=== PATIENT | male | born 1965 | race Caucasian/White ===

== ENCOUNTER 2016-06-19 07:45 | Day surgery (SDC) | payer BC ==
[2016-06-14 08:46] VITALS: BMI 34.5
[~2016-06-19 07:45] MED LIST: LACTATED RINGERS 1,000 ML IV SCH; LIDOCAINE 1% 20 ML VIAL (10MG/ML) FOR IV START INTRADERMA PRN
[2016-06-19 08:08] VITALS: TEMP 97.6
[2016-06-19] MEDS ORDERED: PROPOFOL 10 MG/ML 20 ML VIAL IV ONE (08:15)
--- NOTE | 2016-06-19 08:30 | P.PCN ---
Date of Procedure: 06/19/16 Postoperative Diagnosis: BRIEF HISTORY: Patient is a 51-year-old pleasant white male, scheduled for an elective colonoscopy as a part of change in bowel habits. PROCEDURE PERFORMED: Colonoscopy with biopsy PREOPERATIVE DIAGNOSIS: Change in bowel habits. IV sedation per Anesthesia. PROCEDURE: After informed consent was obtained, the patient, was brought into the endoscopy unit. IV conscious sedation was administered by Anesthesia under continuous monitoring. Digital rectal examination was normal. Initially the Olympus CF-160 flexible video colonoscope was then inserted in the rectum, gradually advanced into the cecum without any difficulty. Careful examination was performed as the scope was gradually being withdrawn. Ileocecal valve and the appendiceal orifice were visualized and appeared normal. Prep was excellent. Mucosa of the cecum, ascending colon, transverse colon, descending colon, sigmoid colon, and rectum appeared normal. In the distal sigmoid colon there was a 5 mm polyp that was removed by biopsy. Scattered sigmoidal diverticulosis seen. Retroflexion was performed in the rectum and no lesions were seen. The patient tolerated the procedure well. IMPRESSION: 5 mm sigmoid colon polyp status post removal by biopsy Scattered sigmoid diverticulosis. RECOMMENDATIONS: Findings of this examination were discussed with the patient as well as his family. He was advised to follow with the biopsy results. If the biopsy shows a tubular adenoma he can have a repeat surveillance colonoscopy in 5 years.
[2016-06-19 08:32] LABS: Glucose,Whole Blood 134 mg/dL (75-99)
[2016-06-19] MEDS ORDERED: hydrALAZINE HCL 20 MG/ML 1 ML VIAL IVP STA (08:50)
[2016-06-19 08:57] VITALS: RESP 18
[2016-06-19] MEDS ORDERED: hydrALAZINE HCL 20 MG/ML 1 ML VIAL IVP ONE (09:22)
[2016-06-19] MEDS ORDERED: METOPROLOL TARTRATE 5 MG/5 ML VIAL IVP ONE (09:26)
[2016-06-19 10:25] VITALS: BP 167/85; PULSE 75
== END 2016-06-19 10:12 | disposition home or self-care (01) ==
LOC: ORWHC2ENDO 07:45
PROVIDERS: ATTEND Internal Medicine Gastroenterology
DX: K57.30 Diverticulosis of large intestine without perforation or abscess without bleeding (principal); D12.5 Benign neoplasm of sigmoid colon; I10 Essential (primary) hypertension; E78.5 Hyperlipidemia, unspecified; E11.9 Type 2 diabetes mellitus without complications; Z79.899 Other long term (current) drug therapy
CPT/HCPCS: 88305; 45380; J0360; J2704

== ENCOUNTER 2016-10-03 17:34 | Inpatient (IN) | payer BC ==
[2016-10-03] MEDS ORDERED: DILTIAZEM 125 MG in SODIUM CHLORIDE 0.9% 100 ML IV ONE (17:38)
--- NOTE | 2016-10-03 17:48 | ED ---
General Adult HPI - General Chief complaint: Arrhythmia/Palpitations Stated complaint: AFIB, SENT BY DR DIAL Time Seen by Provider: 10/03/16 17:38 Source: patient, family, RN notes reviewed Mode of arrival: ambulatory Limitations: no limitations - History of Present Illness Initial comments: Patient is a pleasant 51-year-old male presenting to the emergency Department with reported atrial fibrillation. Patient has been experiencing palpitations weekly for 7 months. Patient x-ray the swelling his doctor's office. Patient was there for follow-up for high blood pressure. EKG showed A. fib with RVR. Patient did convert while in the office. Patient is currently symptom-free. Patient admits to having palpitations at that time. No chest pain. No dyspnea. No history of previously documented arrhythmia. - Related Data Home Medications Medication Instructions Recorded Confirmed Simvastatin [Zocor] 20 mg PO HS 06/14/16 10/03/16 glyBURIDE/METFORMIN HCL 2 tab PO BID 06/14/16 10/03/16 [glyBURIDE/METFORMIN HCL 2.5-500 mg] Lisinopril [Zestril] 20 mg PO DAILY 10/03/16 10/03/16 cloNIDine HCL [Catapres] 0.1 mg PO Q6H PRN 10/03/16 10/03/16 Allergies Allergy/AdvReac Type Severity Reaction Status Date / Time No Known Allergies Allergy Verified 10/03/16 18:43 Review of Systems ROS Statement: Those systems with pertinent positive or pertinent negative responses have been documented in the HPI. ROS Other: All systems not noted in ROS Statement are negative. Constitutional: Denies: fever Eyes: Denies: eye pain ENT: Denies: ear pain Respiratory: Denies: cough, dyspnea Cardiovascular: Reports: palpitations. Denies: chest pain Endocrine: Denies: fatigue Gastrointestinal: Denies: abdominal pain Genitourinary: Denies: dysuria Musculoskeletal: Denies: back pain Skin: Denies: rash Neurological: Denies: weakness Past Medical History Past Medical History: Diabetes Mellitus, GERD/Reflux, Hyperlipidemia, Hypertension History of Any Multi-Drug Resistant Organisms: None Reported Past Surgical History: Orthopedic Surgery, Tonsillectomy Additional Past Surgical History / Comment(s): thumb on left hand-repair of torn tendon Past Anesthesia/Blood Transfusion Reactions: No Reported Reaction Past Psychological History: No Psychological Hx Reported Smoking Status: Former smoker Past Alcohol Use History: None Reported Additional Past Alcohol Use History / Comment(s): quit smoking 2016, smoked for 10 yrs- < 1 PPD Past Drug Use History: None Reported - Past Family History Brother(s) Family Medical History: Cancer General Exam Limitations: no limitations General appearance: alert, in no apparent distress Head exam: Present: atraumatic Eye exam: Present: normal appearance, PERRL ENT exam: Present: normal oropharynx Neck exam: Present: normal inspection Respiratory exam: Present: normal lung sounds bilaterally Cardiovascular Exam: Present: regular rate, normal rhythm Expanded Peripheral pulses: 2+: Radial (R), Radial (L), Posterior Tibialis (R), Posterior Tibialis (L) GI/Abdominal exam: Present: soft. Absent: tenderness Extremities exam: Present: normal inspection. Absent: pedal edema, calf tenderness Neurological exam: Present: alert Psychiatric exam: Present: normal affect, normal mood Skin exam: Absent: rash Course Vital Signs 10/03/16 10/03/16 10/03/16 17:38 17:48 17:49 Temperature 98.3 F Pulse Rate 77 Pulse Rate [ 75 [employer] ] Respiratory 18 18 Rate Blood Pressure 224/111 O2 Sat by Pulse 98 Oximetry 10/03/16 18:20 Temperature Pulse Rate 66 Pulse Rate [ [employer] ] Respiratory 16 Rate Blood Pressure 195/103 O2 Sat by Pulse 98 Oximetry - Reevaluation(s) Reevaluation #1: 10/03/16 17:47 Case was discussed with Dr. Dial prior to patient arrival. 10/03/16 18:[address] Fonseca's office did show A. fib with RVR. EKG Findings - EKG Comments: EKG Findings:: Normal sinus rhythm 75. Normal intervals. Normal axis. Q wave with inverted T waves leads 3 and aVF. Medical Decision Making - Medical Decision Making Patient reexamined and resting comfortably in bed. Rhythm remains normal sinus. Patient and family updated on results and plan. - Lab Data Result diagrams: 10/03/16 17:45 10/03/16 17:45 Lab Results 10/03/16 10/03/16 10/03/16 Range/Units 17:45 17:45 17:45 WBC 6.5 (3.8-10.6) k/uL RBC 4.74 (4.30-5.90) m/uL Hgb 14.8 (13.0-17.5) gm/dL Hct 43.2 (39.0-53.0) % MCV 91.1 (80.0-100.0) fL MCH 31.2 (25.0-35.0) pg MCHC 34.2 (31.0-37.0) g/dL RDW 13.6 (11.5-15.5) % Plt Count 231 (150-450) k/uL Neutrophils % 48 % Lymphocytes % 40 % Monocytes % 6 % Eosinophils % 4 % Basophils % 1 % Neutrophils # 3.1 (1.3-7.7) k/uL Lymphocytes # 2.6 (1.0-4.8) k/uL Monocytes # 0.4 (0-1.0) k/uL Eosinophils # 0.3 (0-0.7) k/uL Basophils # 0.1 (0-0.2) k/uL PT (9.0-12.0) sec INR (<1.1) APTT (22.0-30.0) sec Sodium 144 (137-145) mmol/L Potassium 5.0 (3.5-5.1) mmol/L Chloride 111 H (98-107) mmol/L Carbon Dioxide 23 (22-30) mmol/L Anion Gap 10 mmol/L BUN 18 (9-20) mg/dL Creatinine 0.90 (0.66-1.25) mg/dL Est GFR (MDRD) Af Amer >60 (>60 ml/min/1.73 sqM) Est GFR (MDRD) Non-Af >60 (>60 ml/min/1.73 sqM) Glucose 110 H (74-99) mg/dL Calcium 9.5 (8.4-10.2) mg/dL Magnesium 2.0 (1.6-2.3) mg/dL Total Bilirubin 0.7 (0.2-1.3) mg/dL AST 40 (17-59) U/L ALT 44 (21-72) U/L Alkaline Phosphatase 59 (38-126) U/L Total Creatine Kinase 225 H (55-170) U/L CK-MB (CK-2) 1.2 (0.0-2.4) ng/mL CK-MB (CK-2) Rel Index 0.5 Troponin I <0.012 (0.000-0.034) ng/mL Total Protein 7.4 (6.3-8.2) g/dL Albumin 4.6 (3.5-5.0) g/dL TSH 2.000 (0.465-4.680) mIU/L Free T4 0.91 (0.78-2.19) ng/dL Free T3 pg/mL 3.9 (2.8-5.3) pg/ml 10/03/16 Range/Units 17:45 WBC (3.8-10.6) k/uL RBC (4.30-5.90) m/uL Hgb (13.0-17.5) gm/dL Hct (39.0-53.0) % MCV (80.0-100.0) fL MCH (25.0-35.0) pg MCHC (31.0-37.0) g/dL RDW (11.5-15.5) % Plt Count (150-450) k/uL Neutrophils % % Lymphocytes % % Monocytes % % Eosinophils % % Basophils % % Neutrophils # (1.3-7.7) k/uL Lymphocytes # (1.0-4.8) k/uL Monocytes # (0-1.0) k/uL Eosinophils # (0-0.7) k/uL Basophils # (0-0.2) k/uL PT 10.5 (9.0-12.0) sec INR 1.0 (<1.1) APTT 22.1 (22.0-30.0) sec Sodium (137-145) mmol/L Potassium (3.5-5.1) mmol/L Chloride (98-107) mmol/L Carbon Dioxide (22-30) mmol/L Anion Gap mmol/L BUN (9-20) mg/dL Creatinine (0.66-1.25) mg/dL Est GFR (MDRD) Af Amer (>60 ml/min/1.73 sqM) Est GFR (MDRD) Non-Af (>60 ml/min/1.73 sqM) Glucose (74-99) mg/dL Calcium (8.4-10.2) mg/dL Magnesium (1.6-2.3) mg/dL Total Bilirubin (0.2-1.3) mg/dL AST (17-59) U/L ALT (21-72) U/L Alkaline Phosphatase (38-126) U/L Total Creatine Kinase (55-170) U/L CK-MB (CK-2) (0.0-2.4) ng/mL CK-MB (CK-2) Rel Index Troponin I (0.000-0.034) ng/mL Total Protein (6.3-8.2) g/dL Albumin (3.5-5.0) g/dL TSH (0.465-4.680) mIU/L Free T4 (0.78-2.19) ng/dL Free T3 pg/mL (2.8-5.3) pg/ml Disposition Clinical Impression: Atrial fibrillation Disposition: ADMITTED IP TO THIS HOSP Referrals: Jesus Dial MD [Primary Care Provider] - 1-2 days Time of Disposition: 18:47
[2016-10-03 17:55] LABS: Basophils # (A) 0.1 k/uL (0-0.2); Basophils % (A) 1 %; CH 31.7; CHCM 34.9; Eosinophils # (A) 0.3 k/uL (0-0.7); Eosinophils % (A) 4 %; HCT 43.2 % (39.0-53.0); HDW 2.68; HGB 14.8 gm/dL (13.0-17.5); Luc % (Auto) 2; Lymphocytes # (A) 2.6 k/uL (1.0-4.8); Lymphocytes % (A) 40 %; MCH 31.2 pg (25.0-35.0); MCHC 34.2 g/dL (31.0-37.0); MCV 91.1 fL (80.0-100.0); Mean Platelet Volume 7.8; Monocytes # (A) 0.4 k/uL (0-1.0); Monocytes % (A) 6 %; Neutrophils # (A) 3.1 k/uL (1.3-7.7); Neutrophils % (A) 48 %; RBC 4.74 m/uL (4.30-5.90); RDW 13.6 % (11.5-15.5); WBC 6.5 k/uL (3.8-10.6); WBC (Perox) 6.65
[2016-10-03 18:04] LABS: Prothrombin Time 10.5 sec (9.0-12.0)
[2016-10-03 18:06] LABS: ALT 44 U/L (21-72); AST 40 U/L (17-59); Alkaline Phosphatase 59 U/L (38-126); Anion Gap 10 mmol/L; Blood Urea Nitrogen 18 mg/dL (9-20); Calcium 9.5 mg/dL (8.4-10.2); Carbon Dioxide 23 mmol/L (22-30); Chloride 111 mmol/L (98-107); Glucose 110 mg/dL (74-99); Non-African American GFR(MDRD) >60 (>60 ml/min/1.73 sqM); Sodium 144 mmol/L (137-145); Total Bilirubin 0.7 mg/dL (0.2-1.3); Total Protein 7.4 g/dL (6.3-8.2)
[2016-10-03 18:11] LABS: Partial Thromboplastin Time 22.1 sec (22.0-30.0)
--- NOTE | 2016-10-03 18:16 | XR ---
EXAMINATION TYPE: XR chest 1V portable DATE OF EXAM: 10/03/2016 6:09 PM COMPARISON: NONE HISTORY: Dysrhythmia TECHNIQUE: Single frontal view of the chest is obtained. FINDINGS: There is no heart failure nor confluent pneumonic infiltrate. Costophrenic angles are seble r. There are chest leads. There are no hilar masses. Bony thorax is intact. IMPRESSION: No active cardiopulmonary disease. Normal heart.
[2016-10-03 18:18] LABS: Creatine Kinase 225 U/L (55-170)
[2016-10-03] MEDS ORDERED: hydrALAZINE HCL 25 MG TAB PO STA (18:22)
[2016-10-03] MEDS ORDERED: cloNIDine HCL 0.1 MG TAB PO STA (18:24)
[2016-10-03 18:30] LABS: Creatine Kinase MB 1.2 ng/mL (0.0-2.4); Troponin I <0.012 ng/mL (0.000-0.034)
[2016-10-03] MEDS ORDERED: HEPARIN SODIUM,PORCINE 5,000 UNIT/ML 1 ML VIAL IV ONE (18:47)
[2016-10-03] MEDS ORDERED: HEPARIN SODIUM,PORCINE 5,000 UNIT/ML 1 ML VIAL IV PRN (18:47)
[2016-10-03] MEDS ORDERED: ASPIRIN 81 MG CHEW PO STA (18:47)
[2016-10-03] MEDS ORDERED: hydrALAZINE HCL 20 MG/ML 1 ML VIAL IVP PRN (18:50)
[2016-10-03] MEDS ORDERED: HEPARIN SODIUM,PORCINE/D5W PMX 25,000 UNIT in DEXTROSE/WATER 1 500ML.BAG IV SCH (19:00)
[2016-10-03 19:18] LABS: Glucose,Whole Blood 83 mg/dL (75-99)
[2016-10-03 20:28] VITALS: BMI 34.3
[2016-10-03 20:39] LABS: Glucose,Whole Blood 73 mg/dL (75-99)
[2016-10-03] MEDS ORDERED: ATORVASTATIN 10 MG TAB PO SCH (21:15)
[2016-10-03] MEDS: metFORMIN 500 MG TAB PO SCH (22:55)
[2016-10-03] MEDS: glipiZIDE 10 MG TAB PO SCH (22:55)
[2016-10-03 23:59] LABS: Creatine Kinase 145 U/L (55-170)
[2016-10-04 00:12] LABS: Troponin I <0.012 ng/mL (0.000-0.034)
[2016-10-04 00:59] LABS: Hemoglobin A1C 6.2 % (4.2-6.1)
[2016-10-04 06:22] LABS: Mean Platelet Volume 7.4
[2016-10-04 06:38] LABS: Creatine Kinase 125 U/L (55-170)
[2016-10-04] MEDS: INSULIN LISPRO (humaLOG) 300 UNIT/3 ML VIAL SQ SCH ×2 (06:41→11:25)
[2016-10-04 06:50] LABS: Creatine Kinase MB 0.9 ng/mL (0.0-2.4); Troponin I <0.012 ng/mL (0.000-0.034)
[2016-10-04 06:52] LABS: Glucose,Whole Blood 83 mg/dL (75-99)
[2016-10-04 07:16] LABS: Cholesterol 142 mg/dL (<200); HDL Cholesterol 43 mg/dL (40-60); Triglycerides 141 mg/dL (<150)
[2016-10-04] MEDS ORDERED: ASPIRIN 325 MG TAB PO SCH (09:00)
[2016-10-04] MEDS ORDERED: LISINOPRIL 20 MG TAB PO SCH (09:00)
[2016-10-04] MEDS ORDERED: cloNIDine HCL 0.1 MG TAB PO SCH (10:30)
[2016-10-04] MEDS: glipiZIDE 10 MG TAB PO SCH (10:45)
[2016-10-04] MEDS: metFORMIN 500 MG TAB PO SCH (10:45)
[2016-10-04] MEDS ORDERED: METOPROLOL TARTRATE 25 MG TAB PO SCH (10:45)
[2016-10-04 11:14] LABS: Glucose,Whole Blood 87 mg/dL (75-99)
--- NOTE | 2016-10-04 11:20 | ECHOF ---
Referral Reason:a fib MEASUREMENTS -------- HEIGHT: 175.3 cm WEIGHT: 103.4 kg BP: 186/100 RVIDd: 3.3 cm (< 3.3) IVSd: 1.5 cm (0.6 - 1.1) LVIDd: 4.4 cm (3.9 - 5.3) LVPWd: 1.4 cm (0.6 - 1.1) IVSs: 1.8 cm LVIDs: 2.9 cm LVPWs: 1.8 cm LA Diam: 3.6 cm (2.7 - 3.8) LAESV Index (A-L): 29.38 ml/m Ao Diam: 3.2 cm (2.0 - 3.7) AV Cusp: 2.1 cm (1.5 - 2.6) LA Diam: 3.3 cm (2.7 - 3.8) MV EXCURSION: 19.176 mm (> 18.000) MV EF SLOPE: 54 mm/s (70 - 150) EPSS: 0.6 cm MV E Josue: 1.04 m/s MV DecT: 227 ms MV A Josue: 1.06 m/s MV E/A Ratio: 0.98 FINDINGS -------- Sinus rhythm. This was a technically adequate study. The left ventricular size is normal. There is moderate concentric left ventricular hypertrophy. Overall left ventricular systolic function is normal with, an EF between 55 - 60 %. The right ventricle is mildly enlarged. LA is midly dilated 29-33ml/m2. The right atrium is normal in size. The aortic valve is trileaflet and appears structurally normal. Mild mitral annular calcification present. The tricuspid valve appears structurally normal. The pulmonic valve was not well visualized. The aortic root size is normal. Normal inferior vena cava with normal inspiratory collapse consistent with estimated right atrial pressure of 5 mmHg. The pericardium is normal. CONCLUSIONS -------- 1. Sinus rhythm. 2. Mild mitral annular calcification present. 3. The tricuspid valve appears structurally normal. 4. The pulmonic valve was not well visualized. 5. The aortic root size is normal. 6. Normal inferior vena cava with normal inspiratory collapse consistent with estimated right atrial pressure of 5 mmHg. 7. The pericardium is normal. 8. This was a technically adequate study. 9. The left ventricular size is normal. 10. There is moderate concentric left ventricular hypertrophy. 11. Overall left ventricular systolic function is normal with, an EF between 55 - 60 %. 12. The right ventricle is mildly enlarged. 13. LA is midly dilated 29-33ml/m2. 14. The right atrium is normal in size. 15. The aortic valve is trileaflet and appears structurally normal. [employer]: Niurka Flores RDCS
--- NOTE | 2016-10-04 12:19 | P.HPIM ---
History of Present Illness H&P Date: 10/03/16 Chief Complaint: A. fib with RVR, shortness of breath, urgent hypertension, hyperlipidemia a 51-year-old male one of my office patient mildly overweight with history of diabetes hypertension hyperlipidemia who was seen in our office in for mild shortness of breath along with significant elevated blood pressure not controlled to current medication. At the time found to be in A. fib with RVR pulse rate running around 120 bpm. Patient was sent to the emergency department to start on heparin drip and Cardizem drip and admitted to the hospital with above problem. Patient has been symptomatic for over 2 weeks according to him with mild feeling of palpitation on and off, increased swelling in the legs, significantly high blood pressure and just not feeling well overall. Patient be started on Cardizem drip initially will be started on beta nadira and will be kept on it as an outpatient try to control his blood pressure and to keep it below 150 systolic echocardiogram and possibly stress test will be ordered beside seeing cardiology. Review of Systems Constitutional: Reports chronic headaches, Reports fatigue, Reports malaise, Reports poor appetite, Reports weakness, Denies as per HPI, Denies anorexia, Denies chills, Denies chronic pain, Denies daytime sleepiness, Denies fever, Denies lethargy, Denies night sweats, Denies sweats, Denies weight gain, Denies weight loss Eyes: bilateral as per HPI Ears: bilateral: decreased hearing Ears, nose, mouth and throat: Reports ant. neck pain, Reports nasal congestion, Reports nasal discharge, Reports sinus pressure, Reports swelling in mouth, Denies as per HPI, Denies bleeding gums, Denies dental pain, Denies dysphagia, Denies epistaxis, Denies headache, Denies hoarseness, Denies mouth pain, Denies neck fullness/pressure, Denies neck lump, Denies nose pain, Denies odynophagia, Denies post-nasal drip, Denies sinus pain, Denies swelling in throat, Denies sore throat, Denies vertigo, Denies voice changes Cardiovascular: Reports chest pain, Reports dyspnea on exertion, Reports edema, Reports high blood pressure, Reports irregular heart beat, Reports leg edema, Reports lightheadedness, Reports orthopnea, Reports palpitations, Reports paroxysmal nocturnal dyspnea, Reports rapid heart beat, Reports shortness of breath, Denies as per HPI, Denies claudication, Denies decreased exercise tolerance, Denies phlebitis, Denies syncope Respiratory: Reports congestion, Reports dyspnea, Denies as per HPI, Denies cough with sputum, Denies excessive sputum, Denies hemoptysis, Denies home oxygen, Denies pain, Denies pain on inspiration, Denies pleurisy, Denies respiratory infections, Denies sleep apnea, Denies snoring, Denies wheezing Gastrointestinal: Reports dyspepsia, Reports indigestion, Reports nausea, Denies as per HPI, Denies abdominal pain, Denies belching, Denies bloating, Denies BRBPR, Denies change in bowel habits, Denies coffee ground emesis, Denies constipation, Denies diarrhea, Denies early satiety, Denies excessive gas , Denies heartburn, Denies hematemesis, Denies hematochezia, Denies jaundice, Denies lactose intolerance, Denies loss of appetite, Denies melena, Denies vomiting Genitourinary: Reports nocturia, Reports polyuria, Denies as per HPI, Denies decreased libido, Denies difficulties fathering child, Denies discharge, Denies dysuria, Denies erectile dysfunction, Denies flank pain, Denies genital pain, Denies genital sores, Denies hematuria, Denies impotence, Denies incontinence, Denies kidney stones, Denies testicular lump, Denies testicular pain, Denies urinary frequency, Denies urinary hesitancy, Denies urinary retention Musculoskeletal: Reports neck pain, Reports neck stiffness, Denies as per HPI, Denies arm numbness/tingling, Denies atrophy, Denies fractures, Denies frequent falls, Denies gait dysfunction, Denies hot joints, Denies leg numbness/tingling , Denies limitation of motion, Denies loss of height, Denies low back pain, Denies morning stiffness, Denies muscle cramps, Denies muscle weakness, Denies myalgias, Denies prior amputations, Denies redness of joints, Denies shooting arm pain, Denies shooting leg pain Integumentary: Reports pruritus, Reports rash, Denies as per HPI, Denies acne, Denies boils, Denies brittle nails, Denies change in hair/nails, Denies color changes, Denies darkening of skin, Denies depigmentation, Denies dryness, Denies foot/leg ulcers, Denies growths, Denies hirsutism, Denies lesions, Denies onychomycosis, Denies sores, Denies striae, Denies unusual bruising, Denies wounds Neurological: Reports ataxia, Reports paresthesias, Reports tingling, Denies as per HPI, Denies aphasia, Denies balance difficulties, Denies burning pain, Denies change in mentation, Denies change in smell/taste, Denies change in speech, Denies confusion, Denies convulsions, Denies double vision, Denies gait dysfunction, Denies head injury, Denies headaches, Denies hearing difficulties, Denies lack of coordination, Denies loss of vision, Denies memory loss, Denies migraines, Denies motor disturbance, Denies numbness, Denies paralysis, Denies seizures, Denies sensory deficit, Denies spasticity, Denies syncope, Denies tic , Denies transient paralysis, Denies tremors, Denies vertigo, Denies weakness, Denies visual changes Psychiatric: Denies as per HPI, Denies anhedonia, Denies anxiety, Denies anxiety attacks, Denies change in appetite, Denies change in libido, Denies change in sleep habits, Denies confusion, Denies depression, Denies difficulty concentrating, Denies disorientation, Denies hallucinations, Denies hopelessness , Denies hypersomnia, Denies insomnia, Denies irritability, Denies memory loss, Denies mood swings, Denies paranoia, Denies sadness/tearfulness, Denies sleep disturbances, Denies suicidal ideation Endocrine: Reports fatigue, Reports flushing, Denies as per HPI, Denies cold intolerance, Denies deepening of the voice, Denies excessive sweating, Denies excessive thirst, Denies heat intolerance, Denies high blood sugars, Denies increase in ring/shoe/hat size, Denies low blood sugars, Denies nocturia, Denies palpitations, Denies polydipsia, Denies polyphagia, Denies polyuria, Denies proptosis, Denies recent glucocorticoid use, Denies thyroid mass, Denies weight change Hematologic/Lymphatic: Denies as per HPI, Denies easy bleeding, Denies easy bruising, Denies lymphadenopathy, Denies lymphedema, Denies thrombophilia Allergic/Immunologic: Denies as per HPI, Denies allergic rhinitis, Denies anaphylaxis, Denies angioedema, Denies gluten intolerance, Denies persistent infections, Denies seasonal allergies, Denies urticaria, Denies wheezing Past Medical History Past Medical History: Diabetes Mellitus, GERD/Reflux, Hyperlipidemia, Hypertension History of Any Multi-Drug Resistant Organisms: None Reported Past Surgical History: Orthopedic Surgery, Tonsillectomy Additional Past Surgical History / Comment(s): thumb on left hand-repair of torn tendon, colonoscopy in Past Anesthesia/Blood Transfusion Reactions: No Reported Reaction Past Psychological History: No Psychological Hx Reported Smoking Status: Former smoker Past Alcohol Use History: None Reported Additional Past Alcohol Use History / Comment(s): quit smoking 2015, smoked for 10 yrs- < 1 PPD Past Drug Use History: None Reported - Past Family History Brother(s) Family Medical History: Cancer Additional Family Medical History / Comment(s): Bone CA Mother Family Medical History: Coronary Artery Disease (CAD), Diabetes Mellitus Additional Family Medical History / Comment(s): CABG Father Family Medical History: COPD Medications and Allergies Home Medications Medication Instructions Recorded Confirmed Type Simvastatin [Zocor] 20 mg PO HS 06/14/16 10/03/16 History glyBURIDE/METFORMIN HCL 2 tab PO BID 06/14/16 10/03/16 History [glyBURIDE/METFORMIN HCL 2.5-500 mg] Lisinopril [Zestril] 20 mg PO DAILY 10/03/16 10/03/16 History cloNIDine HCL [Catapres] 0.1 mg PO BID 10/03/16 10/04/16 History Allergies Allergy/AdvReac Type Severity Reaction Status Date / Time No Known Allergies Allergy Verified 10/03/16 18:43 Physical Exam Vitals: Vital Signs Temp Pulse Pulse Resp BP BP Pulse Ox 10/04/16 11:19 65 18 188/88 97 10/04/16 08:55 165/89 10/04/16 07:52 115 H 17 10/04/16 07:50 97 F L 115 H 17 200/120 97 10/04/16 04:00 97.2 F L 63 18 186/100 96 10/04/16 00:00 64 18 171/86 96 10/03/16 19:28 97.3 F L 61 18 156/92 96 10/03/16 18:59 65 18 185/97 98 Intake and Output 10/03/16 10/04/16 10/04/16 22:59 06:59 14:59 Intake Total 925.428 Balance 925.428 Intake: IV 320.24 0.9NS @ 20cc/hr 160 Heparin Sodium,Porcine/ 160.24 D5w Pmx 25,000 unit In Dextrose/Water 1 500ml. bag @ 9.4 UNITS/KG/HR 20. 03 mls/hr IV .Q24H [facility] Rx #:[id number] Intake, IV Titration 125.188 Amount Heparin Sodium,Porcine/ 125.188 D5w Pmx 25,000 unit In Dextrose/Water 1 500ml. bag @ 9.4 UNITS/KG/HR 20. 03 mls/hr IV .Q24H [facility] Rx #:[id number] Oral 480 Other: Voiding Method Toilet Toilet Toilet Weight 105.4 kg 103.7 kg - Constitutional General appearance: no average body habitus, cooperative, no disheveled, no mild distress, no morbidly obese, no acute distress, no obese, no severe distress, no thin - EENT Eyes: no abnormal pupil, no anicteric sclerae, no disc margins sharp, no edentulous, no EOMI, no PERRLA, no fundus normal, no photophobia, no dentition normal, no poor dentition, no ptosis, no scleral icterus, normal appearance ENT: no hard of hearing, no hearing grossly normal, no NA/AT, normal oropharynx , no other, no pharyngeal erythema, no thrush, no tonsillar exudates, no tonsillar swelling Ears: bilateral: normal - Neck Neck: no lymphadenopathy, normal ROM, no other, no rigidity, no stridor, no thyromegaly Carotids: bilateral: upstroke normal Thyroid: bilateral: normal size - Respiratory Respiratory: bilateral: CTA - Cardiovascular Rhythm: irregularly irregular Heart sounds: normal: S1, S2 Abnormal Heart Sounds: systolic murmur, S3 Gallop - Gastrointestinal General gastrointestinal: no absent bowel sounds, no decreased bowel sounds, distended, no hepatomegaly, no hyperactive bowel sounds, normal bowel sounds, no organomegaly, no rigid, no scaphoid, soft, no splenomegaly, no tenderness, no umbilical hernia, no ventral hernia - Integumentary Integumentary: no calor, no cellulitis, no cyanotic, no decreased turgor, no flushed, no jaundiced, normal, no normal turgor, pale, rash, no ulcer - Neurologic Neurologic: CNII-XII intact - Musculoskeletal Musculoskeletal: gait normal, generalized weakness, no strength equal bilaterally, no right sided weakness, no left sided weakness - Psychiatric Psychiatric: A&O x's 3, appropriate affect, no intact judgment & insight Results CBC & Chem 7: 10/04/16 06:01 10/03/16 17:45 Labs: Abnormal Lab Results - Last 24 Hours (Table) 10/03/16 10/03/16 10/04/16 Range/Units 20:38 23:16 06:01 APTT 54.9 H (22.0-30.0) sec POC Glucose (mg/dL) 73 L (75-99) mg/dL Hemoglobin A1c 6.2 H (4.2-6.1) % Thrombosis Risk Factor Assmnt - DVT/VTE Prophylaxis DVT/VTE Prophylaxis: Pharmacologic Prophylaxis ordered, Mechanical Prophylaxis ordered - Choose All That Apply Any of the Below Risk Factors Present?: Yes Each Factor Represents 1 point: Age 41-60 years, Obesity (BMI >25) Thrombosis Risk Factor Assessment Total Risk Factor Score: 2 Thrombosis Risk Factor Assessment Level: Low Risk Assessment and Plan Plan: 1 A. fib with RVR: Patient will be on Cardizem drip along with heparin drip, consult cardiology, echocardiogram and stress test will be order and if symptoms are better controlled hopefully patient can be discharged home on beta nadira for a quick follow-up as an outpatient. Anticoagulation was discussed with the patient agreeable to start him on Eliquis 5 mg twice a day with send a prescription see if approved with his current insurance. 2 mild shortness of breath: Most likely from A. fib with try to treat underlying disease and recheck symptoms. Patient can benefit from going for stress test with his current circumstances of any abnormality might need heart cath. 3 urgent hypertension: Blood pressure is not under control currently despite been on lisinopril 40 mg a day has an order for clonidine 0.1 mg every 6 hour for systolic above 160 patient has not been using it lately can be use we'll add metoprolol 25 mg twice a day we'll titrate higher to 50 if patient can't tolerate the dose. 4 diabetes: Continue patient on Glip/metformin 2.5/500 mg 2 tablet twice a day continue Accu-Chek with sliding scales coverage. 5 hyperlipidemia: Patient is on simvastatin 20 mg a day. 6 GERD/GI prophylaxis: Patient will be on Pepcid 20 mg daily. 7 DVT prophylaxis: Patient be on anticoagulation with heparin drip and switch to Eliquis twice a day. CODE STATUS: Full code. Expectation from this admission: Patient be in the hospital for 1-2 nights.
[2016-10-04] MEDS ORDERED: APIXABAN 5 MG TAB PO SCH (13:45)
--- NOTE | 2016-10-04 14:55 | P.CRDCN ---
History of Present Illness Consult date: 10/04/16 Reason for Consult (text): New onset A-Fib Chief complaint: palpitations History of present illness: Is an 51-year-old gentleman with a history of hypertension, diabetes, hyperlipidemia, GERD, ex-smoker quit in February 2016. He was at a follow-up with his primary care physician yesterday for hypertension, had complaints of palpitations and an EKG showed patient to be in atrial fibrillation with rapid ventricular response. Patient does not have a known history of atrial fibrillation however has been having these episodes of palpitations for 8 months to a year. He drinks alcohol only seldomly. The patient does snore and has been told by a family member that he is appears to quit breathing while he is sleeping. He has never had a sleep study done. Upon presentation to the emergency room and since admission patient has been in sinus rhythm. Thyroid studies were normal. Troponin levels were negative 3 chest x-ray showed no acute cardiopulmonary process. BUN is 18 creatinine 0.90. He has been on a heparin drip. Blood pressure remains poorly controlled he has been on lisinopril 20 mg by mouth daily and clonidine 0.1 mg by mouth twice a day. Upon examination, patient is resting comfortably in bed. Denies complaints of palpitations since admission. He denies any complaints of nausea, vomiting, shortness of breath, chest discomfort, dizziness, lightheadedness, syncope or edema. Past Medical History Past Medical History: Diabetes Mellitus, GERD/Reflux, Hyperlipidemia, Hypertension History of Any Multi-Drug Resistant Organisms: None Reported Past Surgical History: Orthopedic Surgery, Tonsillectomy Additional Past Surgical History / Comment(s): thumb on left hand-repair of torn tendon, colonoscopy in Past Anesthesia/Blood Transfusion Reactions: No Reported Reaction Past Psychological History: No Psychological Hx Reported Smoking Status: Former smoker Past Alcohol Use History: None Reported Additional Past Alcohol Use History / Comment(s): quit smoking 2015, smoked for 10 yrs- < 1 PPD Past Drug Use History: None Reported - Past Family History Brother(s) Family Medical History: Cancer Additional Family Medical History / Comment(s): Bone CA Mother Family Medical History: Coronary Artery Disease (CAD), Diabetes Mellitus Additional Family Medical History / Comment(s): CABG Father Family Medical History: COPD Medications and Allergies Home Medications Medication Instructions Recorded Confirmed Type Simvastatin [Zocor] 20 mg PO HS 12/30/16 04/20/17 History glyBURIDE/METFORMIN HCL 2 tab PO BID 06/14/16 10/03/16 History [glyBURIDE/METFORMIN HCL 2.5-500 mg] Lisinopril [Zestril] 20 mg PO DAILY 10/03/16 10/03/16 History cloNIDine HCL [Catapres] 0.1 mg PO BID 10/03/16 10/04/16 History Allergies Allergy/AdvReac Type Severity Reaction Status Date / Time No Known Allergies Allergy Verified 10/03/16 18:43 Physical Exam Vitals: Vital Signs Temp Pulse Pulse Resp BP BP Pulse Ox 10/04/16 07:52 115 H 17 10/04/16 07:50 97 F L 115 H 17 200/120 97 10/04/16 04:00 97.2 F L 63 18 186/100 96 10/04/16 00:00 64 18 171/86 96 10/03/16 19:28 97.3 F L 61 18 156/92 96 10/03/16 18:59 65 18 185/97 98 Intake and Output 10/03/16 10/04/16 10/04/16 22:59 06:59 14:59 Intake Total 925.428 Balance 925.428 Intake: IV 320.24 0.9NS @ 20cc/hr 160 Heparin Sodium,Porcine/ 160.24 D5w Pmx 25,000 unit In Dextrose/Water 1 500ml. bag @ 9.4 UNITS/KG/HR 20. 03 mls/hr IV .Q24H KARINA Rx #:[id number] Intake, IV Titration 125.188 Amount Heparin Sodium,Porcine/ 125.188 D5w Pmx 25,000 unit In Dextrose/Water 1 500ml. bag @ 9.4 UNITS/KG/HR 20. 03 mls/hr IV .Q24H KARINA Rx #:[id number] Oral 480 Other: Voiding Method Toilet Toilet Toilet Weight 105.4 kg 103.7 kg PHYSICAL EXAMINATION: HEENT: Head is atraumatic, normocephalic. Pupils equal, round. Neck is supple. There is no elevated jugular venous pressure. HEART EXAMINATION: Heart sounds regular, S1 and S2 normal. No murmur or gallop heard. CHEST EXAMINATION: Lungs are clear to auscultation and precussion. No chest wall tenderness is noted on palpation or with deep breathing. ABDOMEN: Soft, nontender. Bowel sounds are heard. No organomegaly noted. EXTREMITIES: 2+ peripheral pulses with no evidence of peripheral edema and no calf tenderness noted. NEUROLOGIC patient is awake, alert and oriented x3. . Results 10/04/16 06:01 10/03/16 17:45 Cardiac Enzymes 10/03/16 10/04/16 Range/Units 23:16 06:01 CK-MB (CK-2) 1.0 0.9 (0.0-2.4) ng/mL Troponin I <0.012 <0.012 (0.000-0.034) ng/mL Coagulation 10/03/16 10/04/16 Range/Units 23:16 06:01 APTT 29.6 54.9 H (22.0-30.0) sec Lipids 10/04/16 Range/Units 06:01 Triglycerides 141 (<150) mg/dL Cholesterol 142 (<200) mg/dL HDL Cholesterol 43 (40-60) mg/dL CBC 10/04/16 Range/Units 06:01 Plt Count 188 (150-450) k/uL Current Medications Generic Name Dose Route Start Last Admin Trade Name Freq PRN Reason Stop Dose Admin Aspirin 325 mg 10/04/16 09:00 Aspirin PO DAILY [facility] Atorvastatin Calcium 10 mg 10/03/16 21:15 10/03/16 22:55 Lipitor PO 10 mg HS KARINA Administration Glipizide 10 mg 10/03/16 21:15 10/03/16 22:55 Glucotrol PO 10 mg AC-BID KARINA Administration Heparin Sodium (Porcine) 0 unit 10/03/16 18:47 10/04/16 01:23 Heparin IV 4,000 unit Q6HR PRN Administration Low PTT Protocol Hydralazine HCl 10 mg 10/03/16 18:50 10/04/16 06:40 Apresoline IVP 10 mg Q4HR PRN Administration Blood Pressure - High Heparin Sodium/Dextrose 25,000 500 mls @ 20.03 mls/hr 10/03/16 19:00 01:29 unit/ IV Solution IV 12.4 units/kg/hr .Q24H KARINA 26.43 mls/hr Protocol Titration 9.4 UNITS/KG/HR Insulin Human Lispro 0 unit 10/04/16 07:30 10/04/16 06:41 Humalog SQ Not Given ACHS KARINA Protocol Lisinopril 20 mg 10/04/16 09:00 10/04/16 07:46 Zestril PO 20 mg DAILY KARINA Administration Metformin HCl 1,000 mg 10/03/16 21:30 10/03/16 22:55 Glucophage PO 1,000 mg AC-BID KARINA Administration Intake and Output 10/03/16 10/04/16 10/04/16 22:59 06:59 14:59 Intake Total 925.428 Balance 925.428 Intake: IV 320.24 0.9NS @ 20cc/hr 160 Heparin Sodium,Porcine/ 160.24 D5w Pmx 25,000 unit In Dextrose/Water 1 500ml. bag @ 9.4 UNITS/KG/HR 20. 03 mls/hr IV .Q24H KARINA Rx #:[id number] Intake, IV Titration 125.188 Amount Heparin Sodium,Porcine/ 125.188 D5w Pmx 25,000 unit In Dextrose/Water 1 500ml. bag @ 9.4 UNITS/KG/HR 20. 03 mls/hr IV .Q24H KARINA Rx #:[id number] Oral 480 Other: Voiding Method Toilet Toilet Toilet Weight 105.4 kg 103.7 kg 10/04/16 06:01 Assessment and Plan Plan: Assessment and plan #1 New onset atrial fibrillation with rapid ventricular response, paroxysmal #2 diabetes #3 hypertension #4 hyperlipidemia #5 probable sleep apnea From Cardiology's perspective, we agree with the addition of metoprolol and eliquis. 2-D echo was obtained that showed normal LV systolic function. Patient was encouraged to pursue possible sleep study as an outpatient. He was instructed to avoid alcohol and limit caffeine. He will follow-up with Dr. Huitron as an outpatient. If the patient has recurrent atrial fibrillation we may consider the addition of flecainide in the future. SUPER[employer]OR [employer] note has been reviewed, I agree with a documented findings and plan of care. Patient was seen and examined.
[2016-10-04 16:07] VITALS: BP 130/79; PULSE 61; RESP 20; TEMP 97.1
--- NOTE | 2016-11-22 13:48 | P.DS ---
Providers Date of admission: 10/03/16 18:47 Expected date of discharge: 10/04/16 Attending physician: Jesus Dial Consults: 10/03/16 18:47 Consult Physician Urgent Consulting Provider: Mandie Huitron Consult Reason/Comments: a fib Do you want consulting provider notified?: Yes Primary care physician: [facility] Course: 51-year-old male one of my office patient mildly overweight with history of diabetes hypertension hyperlipidemia who was seen in our office in for mild shortness of breath along with significant elevated blood pressure not controlled to current medication. At the time found to be in A. fib with RVR pulse rate running around 120 bpm. Patient was sent to the emergency department to start on heparin drip and Cardizem drip and admitted to the hospital with above problem. Patient has been symptomatic for over 2 weeks according to him with mild feeling of palpitation on and off, increased swelling in the legs, significantly high blood pressure and just not feeling well overall. Patient be started on Cardizem drip initially will be started on beta nadira and will be kept on it as an outpatient try to control his blood pressure and to keep it below 150 systolic echocardiogram and possibly stress test will be ordered beside seeing cardiology. Triglycerides 141, cholesterol 142, LDL 71, HDL 43. Repeat troponins negative. Hemoglobin A1c was 6.2. Echocardiogram reveals EF 55-60% with moderate concentric left ventricular hypertrophy, LA mildly dilated at 29-33. Patient was seen by cardiology with recommendations for metoprolol and eliquis and follow-up in the office.. Discharge diagnoses: 1 A. fib with RVR with possible paroxysmal atrial fibrillation 2 mild shortness of breath: Most likely from A. fib 3 urgent hypertension 4 diabetes mellitus type II 5 hyperlipidemia 6 GERD Discharge plan: Return home Impression and plan of care have been directed as dictated by the signing physician. Sharon Camacho nurse practitioner acting as scribe for signing physician. Plan - Discharge Summary New Discharge Prescriptions: New Apixaban [Eliquis] 5 mg PO BID #60 tab Metoprolol Tartrate [Lopressor] 25 mg PO BID #60 tab Continue glyBURIDE/METFORMIN HCL [glyBURIDE/METFORMIN HCL 2.5-500 mg] 2 tab PO BID Simvastatin [Zocor] 20 mg PO HS cloNIDine HCL [Catapres] 0.1 mg PO BID Lisinopril [Zestril] 20 mg PO DAILY Discharge Medication List Simvastatin [Zocor] 20 mg PO HS 06/14/16 [History] glyBURIDE/METFORMIN HCL [glyBURIDE/METFORMIN HCL 2.5-500 mg] 2 tab PO BID [History] Lisinopril [Zestril] 20 mg PO DAILY 10/03/16 [History] cloNIDine HCL [Catapres] 0.1 mg PO BID 10/03/16 [History] Apixaban [Eliquis] 5 mg PO BID #60 tab 10/04/16 [Rx] Metoprolol Tartrate [Lopressor] 25 mg PO BID #60 tab 10/04/16 [Rx] Follow up Appointment(s)/Referral(s): [facility] [Provider Group] - 10/15/16 1:45 pm Jesus Dial MD [Primary Care Provider] - 1 Week (Please call office on Friday to schedule follow up appointment. ) Activity/Diet/Wound Care/Special Instructions: pt given free $30 coupon for eliquis and $10/month for 12 month eliquis coupons. Pt has copay of $20 for eliquis if no coupon is applied. Discharge Disposition: HOME SELF-CARE
== END 2016-10-04 15:53 | disposition home or self-care (01) | DRG 310 ==
LOC: EC 17:34 → 6SEL 18:47
PROVIDERS: ADMIT Internal Medicine Geriatric Medicine; ATTEND Internal Medicine Geriatric Medicine
DX: I48.0 Paroxysmal atrial fibrillation (principal); I10 Essential (primary) hypertension; E11.9 Type 2 diabetes mellitus without complications; E78.5 Hyperlipidemia, unspecified; G47.30 Sleep apnea, unspecified; E66.3 Overweight; K21.9 Gastro-esophageal reflux disease without esophagitis; Z79.899 Other long term (current) drug therapy; Z79.84 Long term (current) use of oral hypoglycemic drugs; Z87.891 Personal history of nicotine dependence; Z68.33 Body mass index [BMI] 33.0-33.9, adult; Z82.49 Family history of ischemic heart disease and other diseases of the circulatory system
CPT/HCPCS: 36415; 71010; 80053; 80061; 82550; 82553; 83036; 83735; 84439; 84443; 84481; 84484; 85025; 85049; 85610; 85730; 93005; 93306

== ENCOUNTER → 2021-10-02 | Outpatient (CLI) | payer BC ==
[2021-10-02 10:44] LABS: HCT 39.8 % (39.6-50.0); HGB 13.1 g/dL (13.0-17.0); MCHC 32.9 g/dL (32.0-37.0); MCV 94.3 fL (80.0-97.0); Mean Platelet Volume 10.2 fL (9.5-12.2); NRBC Per 100 WBC 0 /100 WBCS (0.0-0.0); Platelet Count 196 X 10*3/uL (140-440); RBC 4.22 X 10*6/uL (4.40-5.60); RDW 12.9 % (11.5-14.5); WBC 5.45 X 10*3/uL (4.50-10.00)
[2021-10-02 10:52] LABS: African American GFR (CKD) 105.7 (60.0-200.0); Blood Urea Nitrogen 23.6 mg/dL (9.0-27.0); Carbon Dioxide 29.6 mmol/L (20.0-27.5); Non-African American GFR(CKD) 91.2 (60.0-200.0); Potassium 4.5 mmol/L (3.5-5.5)
== END | disposition home or self-care (01) ==
LOC: LABWHC1 07:02
PROVIDERS: ATTEND Internal Medicine Interventional Cardiology
DX: Z01.812 Encounter for preprocedural laboratory examination (principal); R94.39 Abnormal result of other cardiovascular function study
CPT/HCPCS: 36415; 80051; 82565; 84520; 85027

== ENCOUNTER → 2021-10-08 | Day surgery (SDC) | payer BC ==
[2021-10-05 09:18] VITALS: BMI 32.3
[~2021-10-08] MED LIST changes: +CLOPIDOGREL 75 MG TAB ONE; +CLOPIDOGREL 75 MG TAB PO ONE; +HEPARIN SODIUM 1,000 UN/ML (10ML VL) ONE; +IOPAMIDOL-370 100ML BTL INJ ONE; +IOPAMIDOL-370 125ML BTL INJ ONE; +IV FLUID CONTINUATION 1,000 ML IV ONE; -LACTATED RINGERS 1,000 ML IV SCH; -LIDOCAINE 1% 20 ML VIAL (10MG/ML) FOR IV START INTRADERMA PRN; +LIDOCAINE 1% INJ 10MG/ML (5 ML VIAL-PF) SQ ONE; +MIDAZOLAM 2 MG/2 ML VIAL IV ONE; +VERAPAMIL 2.5 MG/ML 2 ML AMP ONE; +VERAPAMIL SYRINGE (5 MG/10 ML) INTRAARTER ONE; +fentaNYL (PF) 50 MCG/ML 2 ML AMP IV ONE; +fentaNYL (PF) 50 MCG/ML 2 ML AMP ONE
--- NOTE | 2021-10-08 09:25 | CC ---
CARDIAC CATHETERIZATION REPORT Mr. Dorantes is a 56-year-old male with a known history of hypertension, hyperlipidemia, diabetes mellitus and paroxysmal atrial fibrillation who has been complaining of progressive dyspnea. He underwent myocardial perfusion imaging that showed evidence suggestive of ischemia. In view of that, recommendation was made regarding cardiac catheterization. The procedure as well as risks and complications were discussed with the patient, who was in full understanding and agreement. PROCEDURE DESCRIPTION: Patient was brought to the finishing lab technician in a fasting, semi-sedated state. After receiving fentanyl and Benadryl and achieving a moderate conscious sedated state, using Xylocaine anesthesia and Seldinger technique, a 6-Indonesian sheath was introduced in the right radial artery. Selective right and left coronary angiography was performed using 5- Indonesian, 3.5 bend right and left Filomena catheters. Multiple views were taken of the arteries, including hemiaxial views. The 5-Indonesian right Filomena was used to cross the aortic valve. The left ventricular end-diastolic pressure was calculated. Following that, catheters were removed. Images were reviewed. Of note, the patient received a total of 5000 units of intravenous heparin as well as intra-arterial verapamil. FINDINGS: LEFT MAIN: This is a short-sized vessel bifurcating into left circumflex and left anterior descending coronary artery. Left main coronary artery has no evidence of high- grade stenosis. LEFT ANTERIOR DESCENDING CORONARY ARTERY: This is a large-sized vessel reaching toward the apex with a wrap around the apex segment giving rise to a small diagonal branch. Left anterior descending artery has mild intimal disease in proximal mid segment of 20% to 30% without any evidence of high-grade stenosis. LEFT CIRCUMFLEX: This is a large codominant vessel giving rise to two obtuse marginal branches and distally bifurcating into PDA and posterolateral segment and branches. The left circumflex first obtuse marginal branch has a 70% to 80% stenosis proximally. The rest of the vessel has no high-grade stenosis. RIGHT CORONARY ARTERY: This is a codominant vessel, moderate in caliber, giving rise to a right PDA. The mid right coronary artery has a 20% to 30% plaque. The rest of the vessel has no high-grade stenosis. LEFT VENTRICULOGRAM: Left ventriculogram was not performed. HEMODYNAMICS: There was no gradient across the aortic valve. The left ventricular end- diastolic pressure was 15 to 18 mmHg. CONCLUSION: 1. Significant stenosis involving the first obtuse marginal branch. 2. Mild disease in the LAD and the RCA. RECOMMENDATIONS: In view of findings and anatomy, I have recommended proceeding with angioplasty and stenting of the left circumflex. The procedure, its risks and complications were discussed with the patient, who is in full understanding and agreement. DEE / PRASHANTH: [id number] /
--- NOTE | 2021-10-08 09:25 | PTCA ---
PERCUTANEOUSTRANS CORORONARY ANGIOGRAPHY DATE OF PROCEDURE: 10/08/2021 Mr. Dorantes is a 56-year-old male with known history of hypertension, hyperlipidemia and diabetes mellitus who has been complaining of progressive dyspnea, had abnormal myocardial perfusion imaging, and his cardiac catheterization showed a significant stenosis involving the first obtuse marginal branch. In view of that, recommendation was made regarding angioplasty and stenting. The procedure as well as risks and complications were discussed with the patient, who was in full understanding and agreement. PROCEDURE DESCRIPTION: A 6-Macedonian FL3.5 guiding catheter was introduced into the system. After cannulating the left main, a 0.014 balanced medium weight J-wire was advanced and positioned in the distal left circumflex. Subsequently a second wire was advanced and positioned in the first obtuse marginal branch. Following that, a 2.5 x 12 mm Xience Skypoint stent was advanced, deployed and post-dilated at 16 atmospheres. After the last inflation, after appropriate wait, the balloon and the guidewire were withdrawn back into the guiding catheter. Images were obtained and repeated. Those images revealed stable successful stenting. At that time, the guiding catheter, the balloon and the guidewire were removed. The sheath was removed. Hemostasis was obtained with deployment of a TR band. There was no immediate complication. Patient was returned to his room in stable condition. Of note, the patient received an additional 2000 units of intravenous heparin. His ACT was followed. He received an oral loading dose of clopidogrel. There was no chest discomfort or EKG changes with the inflation. RESULTS: Successful stenting of the first obtuse marginal branch with reduction of stenosis from between 70% and 80% down to 0%. RECOMMENDATIONS: Patient will be continued on aspirin, Plavix for the first week in addition to re- initiating Eliquis. Subsequently the aspirin will be stopped and he will be continued on Plavix and Eliquis. Those findings and recommendations were discussed with the patient and his family, who are in full understanding and agreement. Duration of sedation was 32 minutes. MMODL / IJN: [id number] /
--- NOTE | 2021-10-08 09:29 | LTR ---
October 08, 2021 To: Dr. Dial Regarding: Mars Dorantes (63) Dear Jayro, I had the pleasure of performing cardiac angiography and coronary angioplasty and stenting on Mr. Dorantes at [facility] on October 08, 2021. A full copy of the procedure note will be forwarded to you. In brief, he was found to have significant stenosis of the first obtuse marginal branch and underwent successful stenting of that vessel. I am hopeful that this procedure will stabilize his status. Thank you again for allowing me to participate in this patient's care. Please feel free to call with any questions. Sincerely, Galdino Rubi M.D. DEE / PRASHANTH: [id number] /
== END | disposition home or self-care (01) ==
LOC: CATHCVL 06:25
PROVIDERS: ATTEND Internal Medicine Interventional Cardiology
DX: I25.10 Atherosclerotic heart disease of native coronary artery without angina pectoris (principal); I48.0 Paroxysmal atrial fibrillation; I10 Essential (primary) hypertension; E11.9 Type 2 diabetes mellitus without complications; E78.2 Mixed hyperlipidemia; G47.33 Obstructive sleep apnea (adult) (pediatric); Z20.822 Contact with and (suspected) exposure to COVID-19; Z87.891 Personal history of nicotine dependence; Z79.01 Long term (current) use of anticoagulants; Z79.899 Other long term (current) drug therapy; Z79.84 Long term (current) use of oral hypoglycemic drugs
CPT/HCPCS: 93458; 87635; C9600; C1769 ×2; C1887; C1894; C1874; J2250; J2001; J3010; J1644; Q9967 ×2

== ENCOUNTER → 2022-07-19 | Outpatient (CLI) | payer BC ==
--- NOTE | 2022-07-19 13:38 | US ---
EXAMINATION TYPE: US kidneys/renal and bladder DATE OF EXAM: 07/19/2022 COMPARISON: NONE CLINICAL HISTORY: N20.0 KIDNEY STONE. Gross hematuria. EXAM MEASUREMENTS: Right Kidney: 10.8 x 5.3 x 5.5 cm Left Kidney: 11.1 x 5.3 x 5.4 cm Right Kidney: No hydronephrosis or masses seen Left Kidney: No hydronephrosis or masses seen Bladder: wnl There is no evidence for hydronephrosis at this point in time. No nephrolithiasis is seen. No saurabh s are identified. The urinary bladder is adequately distended. Bilateral ureteral jets are not seen . IMPRESSION: Source of hematuria not identified. If symptoms persist further investigation with CT uro gram would be warranted.
== END | disposition home or self-care (01) ==
LOC: RADUSWWP 12:49
PROVIDERS: ATTEND Internal Medicine Geriatric Medicine
DX: N20.0 Calculus of kidney (principal); R31.0 Gross hematuria
CPT/HCPCS: 76770

== ENCOUNTER → 2023-05-23 | Outpatient (CLI) | payer BC ==
[2023-05-23 11:25] LABS: Basophils # (A) 0.03 X 10*3/uL (0.00-0.10); Basophils % (A) 0.5 %; Eosinophils # (A) 0.18 X 10*3/uL (0.04-0.35); Eosinophils % (A) 3.2 %; HCT 44.9 % (39.6-50.0); HGB 15.2 g/dL (13.0-17.0); Lymphocytes # (A) 1.65 X 10*3/uL (0.90-5.00); Lymphocytes % (A) 29.4 %; MCH 30.5 pg (27.0-32.0); MCHC 33.9 g/dL (32.0-37.0); MCV 90.2 FL (80.0-97.0); Mean Platelet Volume 9.9 FL (9.5-12.2); Monocytes # (A) 0.51 X 10*3/uL (0.20-1.00); Monocytes % (A) 9.1 %; NRBC Per 100 WBC 0 X 10*3/uL (0.00-0.01); Neutrophils # (A) 3.23 X 10*3/uL (1.80-7.70); Neutrophils % (A) 57.6 %; Platelet Count 205 X 10*3/uL (140-440); RBC 4.98 X 10*6/uL (4.40-5.60); RDW 13.2 % (11.5-14.5); WBC 5.61 X 10*3/uL (4.50-10.00)
[2023-05-23 11:41] LABS: ALT 55 U/L (10-49); AST 28 U/L (14-35); Albumin 4.3 g/dL (3.8-4.9); Albumin/Globulin Ratio 1.95 Ratio (1.60-3.17); Alkaline Phosphatase 83 U/L (41-126); Blood Urea Nitrogen 24.9 mg/dL (9.0-27.0); Calcium 9.6 mg/dL (8.7-10.3); Carbon Dioxide 27.4 mmol/L (21.6-31.8); Chloride 106 mmol/L (96-109); Chol/HDL Ratio 2.75 Ratio; Creatine Kinase 131 U/L (35-257); Globulin 2.2 g/dL (1.6-3.3); Glucose 140 mg/dL (70-110); LDL Cholesterol,Calculated 77.5 mg/dL (0.0-131.0); Potassium 4.3 mmol/L (3.5-5.5); Sodium 143 mmol/L (135-145); Total Bilirubin 0.6 mg/dL (0.3-1.2); Total Protein 6.5 g/dL (6.2-8.2); VLDL Calculation 12.82 mg/dL (5.00-40.00)
== END | disposition home or self-care (01) ==
LOC: LABWHC1 06:44
PROVIDERS: ATTEND Internal Medicine Geriatric Medicine
DX: E11.9 Type 2 diabetes mellitus without complications (principal); I25.10 Atherosclerotic heart disease of native coronary artery without angina pectoris; I48.91 Unspecified atrial fibrillation
CPT/HCPCS: 36415; 80053; 80061; 82043; 82550; 82570; 83036; 84443; 85025

== ENCOUNTER → 2023-07-24 | Outpatient (CLI) | payer BC ==
[2023-07-24 17:01] LABS: ALT 62 U/L (10-49); AST 38 U/L (14-35); Albumin 4.3 g/dL (3.8-4.9); Albumin/Globulin Ratio 1.72 Ratio (1.60-3.17); Alkaline Phosphatase 75 U/L (41-126); BUN/Creat Ratio 19.56 Ratio (12.00-20.00); Blood Urea Nitrogen 17.6 mg/dL (9.0-27.0); Calcium 9.5 mg/dL (8.7-10.3); Carbon Dioxide 30.1 mmol/L (21.6-31.8); Chloride 105 mmol/L (96-109); Chol/HDL Ratio 3.31 Ratio; Globulin 2.5 g/dL (1.6-3.3); Glucose 131 mg/dL (70-110); LDL Cholesterol,Calculated 112.4 mg/dL (0.0-131.0); Potassium 5.2 mmol/L (3.5-5.5); Sodium 145 mmol/L (135-145); Total Bilirubin 0.4 mg/dL (0.3-1.2); Total Protein 6.8 g/dL (6.2-8.2); VLDL Calculation 18.12 mg/dL (5.00-40.00)
== END | disposition home or self-care (01) ==
LOC: LABWHC1 08:35
PROVIDERS: ATTEND Internal Medicine Interventional Cardiology
DX: I10 Essential (primary) hypertension (principal); E78.2 Mixed hyperlipidemia
CPT/HCPCS: 36415; 80053; 80061

== ENCOUNTER 2023-11-20 09:48 | Day surgery (SDC) | payer BC ==
[~2023-11-20 09:48] MED LIST changes: -CLOPIDOGREL 75 MG TAB ONE; -CLOPIDOGREL 75 MG TAB PO ONE; -HEPARIN SODIUM 1,000 UN/ML (10ML VL) ONE; -IOPAMIDOL-370 100ML BTL INJ ONE; -IOPAMIDOL-370 125ML BTL INJ ONE; -IV FLUID CONTINUATION 1,000 ML IV ONE; +LIDOCAINE 1% INJ 10MG/ML (20 ML MDV) ONE; -LIDOCAINE 1% INJ 10MG/ML (5 ML VIAL-PF) SQ ONE; -MIDAZOLAM 2 MG/2 ML VIAL IV ONE; -VERAPAMIL 2.5 MG/ML 2 ML AMP ONE; -VERAPAMIL SYRINGE (5 MG/10 ML) INTRAARTER ONE; -fentaNYL (PF) 50 MCG/ML 2 ML AMP IV ONE; -fentaNYL (PF) 50 MCG/ML 2 ML AMP ONE
[2023-11-20 10:24] LABS: Glucose,Whole Blood 166 mg/dL (70-110)
[2023-11-20 10:30] LABS: Basophils # (A) 0.1 k/uL (0-0.2); Basophils % (A) 1 %; Eosinophils # (A) 0.2 k/uL (0-0.7); Eosinophils % (A) 5 %; HGB 15.2 gm/dL (13.0-17.5); Lymphocytes # (A) 1.5 k/uL (1.0-4.8); Lymphocytes % (A) 32 %; MCH 31.2 pg (25.0-35.0); MCHC 33.7 g/dL (31.0-37.0); MCV 92.5 fL (80.0-100.0); Mean Platelet Volume 8.2; Monocytes # (A) 0.3 k/uL (0-1.0); Monocytes % (A) 7 %; Neutrophils # (A) 2.5 k/uL (1.3-7.7); Neutrophils % (A) 53 %; Platelet Count 204 k/uL (150-450); RBC 4.87 m/uL (4.30-5.90); WBC 4.6 k/uL (3.8-10.6)
[2023-11-20] MEDS: SODIUM CHLORIDE 0.9% 1,000 ML IV SCH ×2 (10:38→18:37)
[2023-11-20 11:06] LABS: ALT 31 U/L (4-49); AST 30 U/L (17-59); African American GFR (CKD) >90 (>60 ml/min/1.73 sqM); Albumin 4.3 g/dL (3.5-5.0); Alkaline Phosphatase 84 U/L (38-126); Anion Gap 7 mmol/L; Blood Urea Nitrogen 23 mg/dL (9-20); Calcium 8.9 mg/dL (8.4-10.2); Carbon Dioxide 24 mmol/L (22-30); Chloride 110 mmol/L (98-107); Glucose 170 mg/dL (74-99); Non-African American GFR(CKD) >90 (>60 ml/min/1.73 sqM); Sodium 141 mmol/L (137-145); Total Protein 6.7 g/dL (6.3-8.2)
[2023-11-20] MEDS: HEPARIN SOD,PORK IN 0.45% NACL 25,000 UNIT in 0.45% NACL 1 250ML.BAG IV ONE (12:10)
[2023-11-20] MEDS: LIDOCAINE 1% INJ 10MG/ML (20 ML MDV) SQ ONE (12:24)
[2023-11-20] MEDS: IOPAMIDOL-370 100ML BTL INJ ONE (14:21)
[2023-11-20] MEDS: LACTATED RINGERS 1,000 ML IV ONE (14:26)
[2023-11-20] MEDS: ONDANSETRON 4 MG/2 ML VIAL IM STA (15:12)
[2023-11-20 15:22] LABS: Glucose,Whole Blood 153 mg/dL (70-110)
[2023-11-20] MEDS ORDERED: ACETAMINOPHEN TAB 325 MG TAB PO PRN (15:26)
[2023-11-20] MEDS: FAMOTIDINE 20 MG/2 ML VIAL IV STA (15:33)
--- NOTE | 2023-11-20 15:37 | P.EPPROC ---
- EP Procedure Note Electrophysiology Procedure Note: PROCEDURE A. fib ablation with PVI and left atrial septal ablation DIAGNOSIS Paroxysmal atrial fibrillation, symptomatic, refractory to therapy RESULT No left atrial appendage mass seen on intracardiac echo Successful A. fib ablation/pulmonary vein isolation of all veins using cryo- ablation Left atrial septal ablation Complete entrance block in all 4 veins confirmed No evidence for phrenic nerve injury Esophageal deflection YES, right-sided esophagus PROCEDURE DETAILS Written informed consent prior to procedure. Patient brought to the EP lab. General anesthesia given. Heparin administered. A city maintained above 300 seconds Both groins prepped and draped per protocol and venous sheaths placed. Esophagus intubated, circa catheter for temperature monitoring an endoscope for possible esophageal deflection. Phrenic nerve monitoring performed. Esophageal temperature monitoring performed. Esophageal deflection performed if circa catheter overlapping with the balloon or circa temperature less than 27.5C Intracardiac echocardiography performed. Pericardium evaluated. Left atrial appendage evaluated. Left atrium evaluated along with pulmonary veins Transseptal catheterization performed under fluoroscopic guidance and intracardiac echo guidance Cryoablation sheath exchanged, balloon catheter along with achieve catheter placed in the left atrium. Pulmonary veins isolated in the following sequence: Left superior pulmonary vein followed by left inferior pulmonary vein, followed by right inferior pulmonary vein and lastly right superior pulmonary vein. Phrenic nerve stimulation along with capture thresholds within the SVC and right superior pulmonary vein to identify the phrenic nerve proximity to the cryo- balloon. Pulmonary veins isolated and confirmed with entrance and exit block. Phrenic nerve integrity confirmed at the end of the procedure Ablation of the left atrial septum performed with cannulation of the superior branch of the right inferior or the inferior branch of the right superior vein to achieve ablation of the posterior septum of the left atrium. Ablation of electrograms confirmed Diagnostic catheters for the high right atrium, His bundle, coronary sinus placed. LA and RA pressures recorded RA pressure: 12/4/8 LA pressure: 29/6/16 Diagnostic EP study with coronary sinus pacing and recording Baseline measurements: AH 76 ms, HV interval 52 ms Sinus cycle length 1600 ms, AZ interval 213 ms, QRS 82 and QT 487 ms Sinus node recovery times were 1319 and 1556 ms. AV node Wenckebach block 350 ms Burst stimulation from the high right atrium from 400 down to 210 ms. No inducible atrial fibrillation High-dose Isopril infused. But stimulation from the right atrial septum performed from 400 ms down to 270 ms. No inducible atrial fibrillation Venous sheaths were removed and hemostasis assured with a closure devicem Vascade for the left groin and Perclose for the right groin. Patient extubated and transferred to recovery PROCEDURES PERFORMED Diagnostic EP study CS pacing and recording Left and right transseptal catheterization Catheter the mapping of the tachycardia Intracardiac echocardiography Pulmonary vein isolation with transseptal and comprehensive EPS, [id number] Drug infusion, +[id number] Linear ablation, left atrium, +[id number]
--- NOTE | 2023-11-20 15:42 | P.HPCAR ---
History of Present Illness This is Dr. Wright dictating an H/P on this patient The patient was interviewed and examined IMPRESSION / ASSESSMENT: Paroxysmal atrial fibrillation, symptomatic with shortness of breath He is episode started yesterday once again and this morning he was in A-fib with RVR Coronary stenting to the obtuse marginal Hypertension Type 2 diabetes Preserved LV systolic function PLAN: A-fib ablation with PVI for paroxysmal atrial fibrillation, symptomatic Continue anticoagulation HPI Patient continues to have episodes of A-fib with RVR. These are associated with shortness of breath Yesterday he started experiencing A-fib again and states he is short of breath with this episode Currently he is in A-fib Denies any fever chills cough expectoration nausea vomiting No loss of consciousness no angina ROS: No fever chills or rigors, no cough, phlegm or expectoration, no nausea, vomiting or diarrhea, no hematuria, dysuria, no musculoskeletal complaints, no strokes or seizures, no skin lesions. EXAMINATION: Blood pressure 189/96 mmHg pulse rate is in the 60s afebrile Breath sounds are clear, no rhonchi no crackles Heart sounds are normal normal S1 normal S2 no murmurs no gallop no rub Abdomen soft nontender No JVD No lower extremity edema REVIEW OF LABS, ECG & MEDICAL DATA White count 4.6 thousand, hemoglobin 15,000 and platelet count 204,000 Sodium 141, potassium 4.0 BUN 23 and creatinine 0.75 TSH 0.96 AST and ALT and normal Physical Exam Vitals: Vital Signs Temp Pulse Resp BP BP Pulse Ox 11/20/23 15:30 65 16 189/106 96 11/20/23 15:15 63 16 178/96 97 11/20/23 15:00 62 16 191/96 93 L 11/20/23 14:45 64 16 199/95 96 11/20/23 10:40 97.5 F L 88 16 179/98 179/113 97 Intake and Output 11/20/23 11/20/23 11/20/23 06:59 14:59 22:59 Intake Total 930 350 Balance 930 350 Intake: IV 930 350 Other: Weight 96.9 kg Past Medical History Past Medical History: Atrial Fibrillation, Diabetes Mellitus, GERD/Reflux, Hyperlipidemia, Hypertension Additional Past Medical History / Comment(s): NIDDM type II, diverticular disease/benign polyp, see Dr Wright H & P History of Any Multi-Drug Resistant Organisms: None Reported Past Surgical History: Orthopedic Surgery, Tonsillectomy Additional Past Surgical History / Comment(s): thumb on left hand-repair of torn tendon, colonoscopies Past Anesthesia/Blood Transfusion Reactions: No Reported Reaction Smoking Status: Former smoker - Past Family History Brother(s) Family Medical History: Cancer Additional Family Medical History / Comment(s): Bone CA Mother Family Medical History: Coronary Artery Disease (CAD), Diabetes Mellitus Additional Family Medical History / Comment(s): CABG Father Family Medical History: COPD Physical Examination Vital Signs Temp Pulse Resp BP BP Pulse Ox 11/20/23 15:30 65 16 189/106 96 11/20/23 15:15 63 16 178/96 97 11/20/23 15:00 62 16 191/96 93 L 11/20/23 14:45 64 16 199/95 96 11/20/23 10:40 97.5 F L 88 16 179/98 179/113 97 Intake and Output 11/20/23 11/20/23 11/20/23 06:59 14:59 22:59 Intake Total 930 350 Balance 930 350 Intake: IV 930 350 Other: Weight 96.9 kg Results 11/20/23 10:10 11/20/23 10:10 Cardiac Enzymes 11/20/23 Range/Units 10:10 AST 30 (17-59) U/L CBC 11/20/23 Range/Units 10:10 WBC 4.6 (3.8-10.6) k/uL RBC 4.87 (4.30-5.90) m/uL Hgb 15.2 (13.0-17.5) gm/dL Hct 45.0 (39.0-53.0) % Plt Count 204 (150-450) k/uL Comprehensive Metabolic Panel 11/20/23 Range/Units 10:10 Sodium 141 (137-145) mmol/L Potassium 4.0 (3.5-5.1) mmol/L Chloride 110 H (98-107) mmol/L Carbon Dioxide 24 (22-30) mmol/L BUN 23 H (9-20) mg/dL Creatinine 0.75 (0.66-1.25) mg/dL Glucose 170 H (74-99) mg/dL Calcium 8.9 (8.4-10.2) mg/dL AST 30 (17-59) U/L ALT 31 (4-49) U/L Alkaline Phosphatase 84 (38-126) U/L Total Protein 6.7 (6.3-8.2) g/dL Albumin 4.3 (3.5-5.0) g/dL Current Medications Generic Name Dose Route Start Last Admin Trade Name Freq PRN Reason Stop Dose Admin Acetaminophen 650 mg 11/20/23 15:26 Acetaminophen Tab 325 Mg Tab PO Q6HR PRN Mild Pain (Scale 1 to 3) Apixaban 5 mg 11/20/23 21:00 Apixaban 5 Mg Tab PO BID KARINA Protocol Atorvastatin Calcium 40 mg 11/20/23 21:00 Atorvastatin 40 Mg Tab PO HS KARINA Ezetimibe 10 mg 11/20/23 21:00 Ezetimibe 10 Mg Tab PO HS KARINA Sodium Chloride 1,000 mls @ 75 mls/hr 11/20/23 15:30 Saline 0.9% IV .[id number] KARINA Metformin HCl 500 mg 11/20/23 21:00 Metformin 500 Mg Tab PO BID KARINA Metoprolol Tartrate 50 mg 11/20/23 21:00 Metoprolol Tartrate 50 Mg Tab PO BID KARINA Sodium Chloride 12 ml 11/20/23 15:26 Sodium Chloride 0.9% Flush 10 Ml Syringe IV Q12HR PRN Line Flush Intake and Output 11/20/23 11/20/23 11/20/23 06:59 14:59 22:59 Intake Total 930 350 Balance 930 350 Intake: IV 930 350 Other: Weight 96.9 kg Patient Weight 11/21/23 06:59 Weight 96.9 kg 11/20/23 10:10 11/20/23 10:10
[2023-11-20] MEDS: lisinopriL 20 MG TAB PO SCH (16:09)
[2023-11-20] MEDS: ACETAMINOPHEN IV (For NPO) 1,000 MG in EMPTY BAG 1 BAG IVPB ONE (16:43)
--- NOTE | 2023-11-20 17:52 | P.PRLE ---
RE: Mars Dorantes Dear Judith Crews underwent a diagnostic EP study and ablation for atrial fibrillation He underwent successful pulm vein isolation following which we could not induce any atrial fibrillation both on and off Isopril He will continue anticoagulation and follow-up with you as before Thank you for entrusting me with the care of the patient Warm regards Sincerely Mino Wright
[2023-11-20] MEDS: METOPROLOL TARTRATE 50 MG TAB PO SCH (21:41)
[2023-11-20] MEDS: ATORVASTATIN 40 MG TAB PO SCH (21:41)
[2023-11-20] MEDS: metFORMIN 500 MG TAB PO SCH (21:41)
[2023-11-20] MEDS: EZETIMIBE 10 MG TAB PO SCH (21:41)
[2023-11-20] MEDS: APIXABAN 5 MG TAB PO SCH (21:41)
[2023-11-21 02:30] VITALS: RESP 18
[2023-11-21 09:18] VITALS: TEMP 98.4
[2023-11-21 10:51] VITALS: BP 143/73; PULSE 62
[2023-11-21] MEDS: CLOPIDOGREL 75 MG TAB PO SCH (12:19)
== END 2023-11-21 12:20 | disposition home or self-care (01) ==
LOC: CATHEP 09:48 → 6NMEDSUR 14:15 → CATHEP 11-21 12:20
PROVIDERS: ATTEND Internal Medicine Clinical Cardiac Electrophysiology
DX: I48.0 Paroxysmal atrial fibrillation (principal); I10 Essential (primary) hypertension; E78.5 Hyperlipidemia, unspecified; K21.9 Gastro-esophageal reflux disease without esophagitis; E11.9 Type 2 diabetes mellitus without complications; Z79.01 Long term (current) use of anticoagulants; Z79.84 Long term (current) use of oral hypoglycemic drugs; Z87.891 Personal history of nicotine dependence; Z95.5 Presence of coronary angioplasty implant and graft; Z79.899 Other long term (current) drug therapy
CPT/HCPCS: 93623; 93656; 93657; 86900; 86901; 80053; 84443; 85025; 86850; C1894 ×2; C1769 ×3; C1760 ×2; C1730 ×2; C1759; C1893; C1733; C1766; J2405; J2001; J3490; J0131; Q9967; J1644

== ENCOUNTER 2023-12-17 07:12 | Day surgery (SDC) | payer BC ==
[2023-12-16 09:09] VITALS: BMI 31.7
[2023-12-17 07:32] VITALS: RESP 16; TEMP 97
[2023-12-17] MEDS: IV FLUID CONTINUATION 1,000 ML IV ONE (07:37)
[2023-12-17 07:38] LABS: Glucose,Whole Blood 111 mg/dL (70-110)
[2023-12-17] MEDS: LACTATED RINGERS 1,000 ML IV SCH (07:38)
[2023-12-17] MEDS ORDERED: PROPOFOL 10 MG/ML 20 ML VIAL IV ONE (08:20)
--- NOTE | 2023-12-17 08:42 | P.PCN ---
Date of Procedure: 12/17/23 Procedure(s) Performed: BRIEF HISTORY: Patient is a 58-year-old pleasant white female scheduled for an elective colonoscopy as a part of evaluation by history of colon polyps. PROCEDURE PERFORMED: Colonoscopy with biopsy. PREOPERATIVE DIAGNOSIS: History of colon polyps. IV sedation per Anesthesia. PROCEDURE: After informed consent was obtained, the patient, was brought into the endoscopy unit. IV sedation was administered by Anesthesia under continuous monitoring. Digital rectal examination was normal. Initially the Olympus CF-160 flexible video colonoscope was then inserted in the rectum, gradually advanced into the cecum without any difficulty. Careful examination was performed as the scope was gradually being withdrawn. Ileocecal valve and the appendiceal orifice were visualized and appeared normal. Prep was excellent. Mucosa of the cecum, ascending colon, transverse colon, descending colon, sigmoid colon, and rectum appeared normal. Scattered sigmoid diverticulosis. Retroflexion was performed in the rectum and no lesions were seen. The patient tolerated the procedure well. IMPRESSION: 4 mm cecal polyp status post cold biopsy Scattered sigmoid diverticulosis and a 4 mm sessile polyp that was removed by cold biopsy. Rest of the RECOMMENDATIONS: Findings of this examination were discussed with the patient as well as his family. He was advised to follow-up with the biopsy results. If the biopsy reveals adenoma he can have repeat colonoscopy in 5 years..
[2023-12-17 08:59] VITALS: BP 173/79; PULSE 52
== END 2023-12-17 09:23 | disposition home or self-care (01) ==
LOC: ORWHC2ENDO 07:12
PROVIDERS: ATTEND Internal Medicine Gastroenterology
DX: Z12.11 Encounter for screening for malignant neoplasm of colon (principal); D12.0 Benign neoplasm of cecum; K57.30 Diverticulosis of large intestine without perforation or abscess without bleeding; Z86.010 Personal history of colon polyps; K21.9 Gastro-esophageal reflux disease without esophagitis; I48.91 Unspecified atrial fibrillation; I10 Essential (primary) hypertension; E11.69 Type 2 diabetes mellitus with other specified complication; E78.5 Hyperlipidemia, unspecified; Z87.891 Personal history of nicotine dependence; Z79.84 Long term (current) use of oral hypoglycemic drugs; Z79.01 Long term (current) use of anticoagulants; Z79.02 Long term (current) use of antithrombotics/antiplatelets; Z79.899 Other long term (current) drug therapy
CPT/HCPCS: 88305; 45380; J2704

== ENCOUNTER → 2024-10-01 | Outpatient (CLI) | payer BC ==
[2024-10-01 17:06] LABS: VLDL Calculation 11.74 mg/dL (5.00-40.00)
[2024-10-01 17:14] LABS: ALT 40 U/L (10-49); AST 27 U/L (14-35); Albumin 4.2 g/dL (3.8-4.9); Albumin/Globulin Ratio 1.91 Ratio (1.60-3.17); Alkaline Phosphatase 87 U/L (41-126); BUN/Creat Ratio 22.56 Ratio (12.00-20.00); Blood Urea Nitrogen 20.3 mg/dL (9.0-27.0); Calcium 8.9 mg/dL (8.7-10.3); Carbon Dioxide 25.3 mmol/L (21.6-31.8); Chloride 105 mmol/L (96-109); Chol/HDL Ratio 2.21 Ratio; Globulin 2.2 g/dL (1.6-3.3); Glucose 208 mg/dL (70-110); LDL Cholesterol,Calculated 42.6 mg/dL (0.0-131.0); Potassium 4.7 mmol/L (3.5-5.5); Sodium 142 mmol/L (135-145); Total Bilirubin 0.6 mg/dL (0.3-1.2); Total Protein 6.4 g/dL (6.2-8.2)
== END | disposition home or self-care (01) ==
LOC: LABWHC1 08:03
PROVIDERS: ATTEND Internal Medicine Interventional Cardiology
DX: E78.2 Mixed hyperlipidemia (principal)
CPT/HCPCS: 36415; 80053; 80061